=== PATIENT | female | born 1965 | race Caucasian/White ===

== ENCOUNTER 2019-09-21 08:10 | Inpatient (IN) ==
[2019-09-21] MEDS ORDERED: Ondansetron ODT 4 MG TAB.RAPDIS SL ONE (08:32)
[2019-09-21] MEDS ORDERED: 0.9 % Sodium Chloride 1,000 ML IVC ONE (08:54)
[2019-09-21] MEDS ORDERED: Ondansetron 4 MG/2 ML VIAL IVP ONE (08:54)
[2019-09-21] MEDS ORDERED: *HR* FentaNYL (PF) 100 MCG/2 ML VIAL IVP ONE (08:54)
[2019-09-21 09:11] LABS: Basophils % 0.7 %; Eosinophils # 0.1 K/mcL (0.0-0.6); Eosinophils % 1.2 %; Hematocrit 42.5 % (35.3-44.9); Hemoglobin 14.1 g/dL (11.5-15.4); Immature Granulocytes % 0.5 % (0-4); Lymphocytes # 1.3 K/mcL (0.6-4.6); Lymphocytes % 22.6 %; Mean Corpuscular HGB Conc 33.2 g/dL (31.6-35.5); Mean Corpuscular Hemoglobin 27.7 pg (28.0-33.3); Mean Corpuscular Volume 83.5 fL (83.0-100.0); Mean Platelet Volume 9.2 fL (9.4-12.4); Monocytes # 0.4 K/mcL (0.0-1.3); Monocytes % 7.1 %; Neutrophils # 3.8 K/mcL (1.6-8.9); Platelet Count 281 K/mcL (140-400); Red Blood Count 5.09 M/mcL (3.82-4.97); Red Cell Distribution Width 13.6 % (11.5-14.5); Segmented Neutrophils % 67.9 %; White Blood Count 5.6 K/mcL (4.3-11.1)
[2019-09-21 09:31] LABS: Prothrombin Time 11.6 Seconds (9.4-12.1)
[2019-09-21 09:34] LABS: BUN/Creatinine Ratio 22 (6-26); Blood Urea Nitrogen 12 mg/dL (6-20); Calcium 9.1 mg/dL (8.6-10.3); Carbon Dioxide 26 mEq/L (23-29); Chloride 105 mEq/L (98-107); Glucose 129 mg/dL (70-105); Osmolality,Calculated 291 (280-300); Potassium 3.8 mEq/L (3.5-5.1); Sodium 140 mEq/L (136-145); eGFR For African Americans > 60 (> 60); eGFR For Non-African Americans > 60 (> 60)
[2019-09-21] MEDS ORDERED: *HR* HYDROcodone/Acet 5/325 mg TABLET PO PRN ×3 (10:30→12:38)
[2019-09-21] MEDS ORDERED: Acetaminophen 325 MG TABLET PO PRN ×2 (10:30→12:38)
[2019-09-21] MEDS ORDERED: MOM Conc 10 ML UD.LIQ PO PRN (10:30)
[2019-09-21] MEDS ORDERED: Naloxone 0.4 MG/ML INJ IVP PRN (10:30)
[2019-09-21] MEDS ORDERED: Ondansetron 4 MG/2 ML VIAL IVP PRN (10:30)
[2019-09-22 07:18] LABS: Basophils % 0.5 %; Eosinophils % 0.5 %; Hematocrit 40.2 % (35.3-44.9); Hemoglobin 12.9 g/dL (11.5-15.4); Immature Granulocytes % 0.4 % (0-4); Lymphocytes # 1.6 K/mcL (0.6-4.6); Mean Corpuscular HGB Conc 32.1 g/dL (31.6-35.5); Mean Corpuscular Hemoglobin 27.9 pg (28.0-33.3); Mean Platelet Volume 9.6 fL (9.4-12.4); Monocytes # 0.8 K/mcL (0.0-1.3); Monocytes % 9.6 %; Neutrophils # 5.7 K/mcL (1.6-8.9); Platelet Count 247 K/mcL (140-400); Red Blood Count 4.62 M/mcL (3.82-4.97); Red Cell Distribution Width 14.1 % (11.5-14.5); White Blood Count 8.2 K/mcL (4.3-11.1)
[2019-09-22 07:34] LABS: BUN/Creatinine Ratio 19 (6-26); Blood Urea Nitrogen 10 mg/dL (6-20); Calcium 8.9 mg/dL (8.6-10.3); Carbon Dioxide 24 mEq/L (23-29); Chloride 107 mEq/L (98-107); Glucose 111 mg/dL (70-105); Osmolality,Calculated 286 (280-300); Potassium 3.8 mEq/L (3.5-5.1); Sodium 138 mEq/L (136-145); eGFR For African Americans > 60 (> 60); eGFR For Non-African Americans > 60 (> 60)
[2019-09-22] MEDS ORDERED: Ropivacaine/PF 0.5% 30 ML VIAL ONE (13:19)
[2019-09-22] MEDS ORDERED: *HR* FentaNYL (PF) 100 MCG/2 ML VIAL ONE ×3 (13:20→17:13)
[2019-09-22] MEDS ORDERED: *HR* Midazolam HCl 2 MG/2 ML VIAL ONE (13:20)
[2019-09-22] MEDS ORDERED: Lidocaine -MPF 2% 2 ML VIAL ONE ×2 (13:30→13:32)
[2019-09-22] MEDS ORDERED: *HR* Propofol 200 MG/20 ML VIAL IVP ONE (13:30)
[2019-09-22] MEDS ORDERED: Ondansetron 4 MG/2 ML VIAL ONE (13:30)
[2019-09-22] MEDS ORDERED: Dexamethasone 4 MG/ML VIAL ONE (13:30)
[2019-09-22] MEDS ORDERED: *HR* Succinylcholine 200 MG/10 ML VIAL IVP ONE (13:30)
[2019-09-22] MEDS ORDERED: Gabapentin 300 MG CAPSULE PO ONE (13:32)
[2019-09-22] MEDS ORDERED: Acetaminophen IV 1,000 MG/100 ML INFUS..BTL ONE (13:40)
[2019-09-22] MEDS ORDERED: Famotidine 20 MG/2 ML VIAL ONE (13:40)
[2019-09-22] MEDS ORDERED: Tetracaine/PF 20 MG/2 ML AMPUL ONE (13:40)
[2019-09-22] MEDS ORDERED: Ondansetron 4 MG/2 ML VIAL IVP ONE ×2 (13:52→19:58)
[2019-09-22] MEDS ORDERED: *HR* Promethazine 25 MG/ML VIAL IVP PRN (13:52)
[2019-09-22] MEDS ORDERED: *HR* OxyCODONE Immed Rel 5 MG TABLET PO PRN (13:52)
[2019-09-22] MEDS ORDERED: Lidocaine HCL 4 ML Topical Solution (Laryng-O-Jet Kit Sterile Pak) TP ONE (14:16)
[2019-09-22] MEDS ORDERED: Clindamycin 900 MG/50 ML 900 MG/50 ML IV.SOLN IVPB ONE (14:36)
[2019-09-22] MEDS ORDERED: *HR* Heparin 5,000 UNIT/ML VIAL SQ SCH (18:00)
[2019-09-22] MEDS ORDERED: *HR* PHENYLEPHRINE 1,000 MCG/10 ML SYRINGE IVP ONE (18:43)
[2019-09-22] MEDS ORDERED: MOM Conc 10 ML UD.LIQ PO PRN (19:58)
[2019-09-22] MEDS ORDERED: Ondansetron 4 MG/2 ML VIAL IVP PRN (19:58)
[2019-09-22] MEDS ORDERED: Naloxone 0.4 MG/ML INJ IVP PRN (19:58)
[2019-09-23] MEDS: Clindamycin 900 MG/50 ML 900 MG/50 ML IV.SOLN IVPB SCH ×3 (00:33→16:43)
[2019-09-23 03:03] LABS: Basophils % 0.2 %; Hematocrit 31.1 % (35.3-44.9); Immature Granulocytes % 0.7 % (0-4); Lymphocytes # 0.7 K/mcL (0.6-4.6); Lymphocytes % 5.9 %; Mean Corpuscular HGB Conc 33.4 g/dL (31.6-35.5); Mean Corpuscular Hemoglobin 28.1 pg (28.0-33.3); Mean Corpuscular Volume 84.1 fL (83.0-100.0); Monocytes # 0.6 K/mcL (0.0-1.3); Monocytes % 5.1 %; Neutrophils # 10.6 K/mcL (1.6-8.9); Platelet Count 246 K/mcL (140-400); Segmented Neutrophils % 88.1 %; White Blood Count 12.1 K/mcL (4.3-11.1)
[2019-09-23 03:05] LABS: Hemoglobin 10.4 g/dL (11.5-15.4)
[2019-09-23 03:21] LABS: BUN/Creatinine Ratio 18 (6-26); Blood Urea Nitrogen 13 mg/dL (6-20); Calcium 8.4 mg/dL (8.6-10.3); Carbon Dioxide 26 mEq/L (23-29); Chloride 106 mEq/L (98-107); Glucose 169 mg/dL (70-105); Osmolality,Calculated 288 (280-300); Potassium 4.6 mEq/L (3.5-5.1); Sodium 137 mEq/L (136-145); eGFR For African Americans > 60 (> 60); eGFR For Non-African Americans > 60 (> 60)
[2019-09-23] MEDS: *HR* Heparin 5,000 UNIT/ML VIAL SQ SCH ×2 (05:59→16:43)
[2019-09-23] MEDS: *HR* HYDROcodone/Acet 5/325 mg TABLET PO PRN ×3 (08:26→22:18)
[2019-09-24 04:33] LABS: Basophils # 0.1 K/mcL (0.0-0.2); Basophils % 0.5 %; Eosinophils % 0.2 %; Hematocrit 24.3 % (35.3-44.9); Immature Granulocytes % 1.2 % (0-4); Lymphocytes # 2.1 K/mcL (0.6-4.6); Lymphocytes % 17.5 %; Mean Corpuscular HGB Conc 34.2 g/dL (31.6-35.5); Mean Corpuscular Hemoglobin 28.1 pg (28.0-33.3); Mean Corpuscular Volume 82.4 fL (83.0-100.0); Mean Platelet Volume 10.1 fL (9.4-12.4); Monocytes # 1.5 K/mcL (0.0-1.3); Monocytes % 12.2 %; Neutrophils # 8.3 K/mcL (1.6-8.9); Platelet Count 254 K/mcL (140-400); Red Blood Count 2.95 M/mcL (3.82-4.97); Red Cell Distribution Width 14.1 % (11.5-14.5); Segmented Neutrophils % 68.4 %; White Blood Count 12.2 K/mcL (4.3-11.1)
[2019-09-24 04:36] LABS: Hemoglobin 8.3 g/dL (11.5-15.4)
[2019-09-24 04:54] LABS: BUN/Creatinine Ratio 30 (6-26); Blood Urea Nitrogen 16 mg/dL (6-20); Carbon Dioxide 25 mEq/L (23-29); Chloride 101 mEq/L (98-107); Glucose 134 mg/dL (70-105); Osmolality,Calculated 279 (280-300); Potassium 4.2 mEq/L (3.5-5.1); Sodium 133 mEq/L (136-145); eGFR For African Americans > 60 (> 60); eGFR For Non-African Americans > 60 (> 60)
[2019-09-24] MEDS: *HR* Heparin 5,000 UNIT/ML VIAL SQ SCH ×2 (05:32→18:20)
[2019-09-24] MEDS: *HR* HYDROcodone/Acet 5/325 mg TABLET PO PRN ×2 (08:50→19:53)
[2019-09-25 06:32] LABS: Basophils # 0.1 K/mcL (0.0-0.2); Basophils % 0.7 %; Eosinophils # 0.1 K/mcL (0.0-0.6); Eosinophils % 0.6 %; Hematocrit 23.5 % (35.3-44.9); Hemoglobin 7.8 g/dL (11.5-15.4); Lymphocytes # 1.7 K/mcL (0.6-4.6); Lymphocytes % 15.2 %; Mean Corpuscular HGB Conc 33.2 g/dL (31.6-35.5); Mean Corpuscular Volume 84.2 fL (83.0-100.0); Mean Platelet Volume 9.6 fL (9.4-12.4); Monocytes # 1.2 K/mcL (0.0-1.3); Monocytes % 10.6 %; Neutrophils # 7.8 K/mcL (1.6-8.9); Nucleated Red Blood Cells 0.2 /100 WBC (0); Platelet Count 283 K/mcL (140-400); Red Blood Count 2.79 M/mcL (3.82-4.97); Red Cell Distribution Width 14.1 % (11.5-14.5); Segmented Neutrophils % 69.9 %; White Blood Count 11.2 K/mcL (4.3-11.1)
[2019-09-25] MEDS: *HR* Heparin 5,000 UNIT/ML VIAL SQ SCH ×2 (07:44→17:15)
[2019-09-25] MEDS: Acetaminophen 325 MG TABLET PO PRN ×2 (07:55→20:30)
[2019-09-25] MEDS: *HR* HYDROcodone/Acet 5/325 mg TABLET PO PRN (17:58)
[2019-09-25] MEDS ORDERED: *HR* Metoprolol 5 MG/5 ML VIAL IVP ONE (21:47)
[2019-09-26] MEDS: *HR* HYDROcodone/Acet 5/325 mg TABLET PO PRN ×3 (05:29→20:36)
[2019-09-26 06:05] LABS: Basophils # 0.1 K/mcL (0.0-0.2); Basophils % 0.7 %; Eosinophils # 0.2 K/mcL (0.0-0.6); Eosinophils % 1.7 %; Hematocrit 22.4 % (35.3-44.9); Hemoglobin 7.3 g/dL (11.5-15.4); Immature Granulocytes % 4.2 % (0-4); Lymphocytes # 2.1 K/mcL (0.6-4.6); Lymphocytes % 19.6 %; Mean Corpuscular HGB Conc 32.6 g/dL (31.6-35.5); Mean Corpuscular Hemoglobin 27.5 pg (28.0-33.3); Mean Corpuscular Volume 84.5 fL (83.0-100.0); Mean Platelet Volume 9.2 fL (9.4-12.4); Monocytes # 1.1 K/mcL (0.0-1.3); Monocytes % 10.2 %; Neutrophils # 6.8 K/mcL (1.6-8.9); Platelet Count 321 K/mcL (140-400); Red Blood Count 2.65 M/mcL (3.82-4.97); Red Cell Distribution Width 14.3 % (11.5-14.5); Segmented Neutrophils % 63.6 %; White Blood Count 10.7 K/mcL (4.3-11.1)
[2019-09-26] MEDS: *HR* Heparin 5,000 UNIT/ML VIAL SQ SCH ×2 (06:17→20:38)
[2019-09-26 06:26] LABS: BUN/Creatinine Ratio 26 (6-26); Blood Urea Nitrogen 12 mg/dL (6-20); Calcium 8.2 mg/dL (8.6-10.3); Carbon Dioxide 27 mEq/L (23-29); Chloride 100 mEq/L (98-107); Glucose 119 mg/dL (70-105); Osmolality,Calculated 281 (280-300); Potassium 3.9 mEq/L (3.5-5.1); Sodium 135 mEq/L (136-145); eGFR For African Americans > 60 (> 60); eGFR For Non-African Americans > 60 (> 60)
[2019-09-26] MEDS: Acetaminophen 325 MG TABLET PO PRN (07:57)
[2019-09-27 06:29] LABS: Hematocrit 21.5 % (35.3-44.9); Hemoglobin 6.8 g/dL (11.5-15.4); Mean Corpuscular HGB Conc 31.6 g/dL (31.6-35.5); Mean Corpuscular Hemoglobin 27.5 pg (28.0-33.3); Mean Platelet Volume 9.1 fL (9.4-12.4); Platelet Count 342 K/mcL (140-400); Red Blood Count 2.47 M/mcL (3.82-4.97); Red Cell Distribution Width 14.5 % (11.5-14.5); White Blood Count 9.3 K/mcL (4.3-11.1)
[2019-09-27 06:54] LABS: BUN/Creatinine Ratio 24 (6-26); Blood Urea Nitrogen 11 mg/dL (6-20); Calcium 8.1 mg/dL (8.6-10.3); Carbon Dioxide 29 mEq/L (23-29); Chloride 100 mEq/L (98-107); Glucose 111 mg/dL (70-105); Osmolality,Calculated 282 (280-300); Potassium 3.8 mEq/L (3.5-5.1); Sodium 136 mEq/L (136-145); eGFR For African Americans > 60 (> 60); eGFR For Non-African Americans > 60 (> 60)
[2019-09-27] MEDS ORDERED: *HR* Heparin 5,000 UNIT/ML VIAL SQ SCH (07:30)
[2019-09-27] MEDS: *HR* HYDROcodone/Acet 5/325 mg TABLET PO PRN ×3 (07:51→22:01)
[2019-09-27] MEDS: Acetaminophen 325 MG TABLET PO PRN ×2 (11:38→17:26)
[2019-09-27] MEDS ORDERED: 0.9 % Sodium Chloride 250 ML ONE ×2 (12:08→17:15)
[2019-09-28 03:30] LABS: Hematocrit 26.6 % (35.3-44.9); Mean Corpuscular HGB Conc 33.5 g/dL (31.6-35.5); Mean Corpuscular Hemoglobin 27.8 pg (28.0-33.3); Mean Corpuscular Volume 83.1 fL (83.0-100.0); Mean Platelet Volume 8.9 fL (9.4-12.4); Platelet Count 404 K/mcL (140-400); Red Cell Distribution Width 14.7 % (11.5-14.5)
[2019-09-28 03:36] LABS: Hemoglobin 8.9 g/dL (11.5-15.4)
[2019-09-28 03:42] LABS: BUN/Creatinine Ratio 28 (6-26); Blood Urea Nitrogen 12 mg/dL (6-20); Calcium 8.3 mg/dL (8.6-10.3); Carbon Dioxide 25 mEq/L (23-29); Chloride 102 mEq/L (98-107); Glucose 106 mg/dL (70-105); Osmolality,Calculated 280 (280-300); Potassium 3.7 mEq/L (3.5-5.1); Sodium 135 mEq/L (136-145); eGFR For African Americans > 60 (> 60); eGFR For Non-African Americans > 60 (> 60)
[2019-09-28] MEDS: *HR* HYDROcodone/Acet 5/325 mg TABLET PO PRN ×3 (06:03→17:45)
[2019-09-28] MEDS: Acetaminophen 325 MG TABLET PO PRN (09:57)
[2019-09-28 10:58] VITALS: BP 128/79
== END 2019-09-28 18:20 | DRG 481 ==
LOC: EMEROOARM 08:10 → 3NENU 08:10 → SUATTDRO 09:24 → 3NENU 10:58 → MERGE 09-22 14:26
PROVIDERS: ADMIT Internal Medicine; ATTEND Internal Medicine